=== PATIENT | female | born 1980 | race Caucasian/White ===

== ENCOUNTER 2017-11-19 15:31 | Emergency (ER) | payer OTHER ==
[2017-11-19 16:31] LABS: CLARITY,URINE CLEAR; COLOR,URINE YELLOW
[2017-11-19 16:32] LABS: BACTERIA,URINE 0 /HPF (0-FEW); BILIRUBIN,URINE NEG (NEG); GLUCOSE,URINE NEG (NEG); NITRITE,URINE NEG (NEG); SQUAMOUS EPITHELIAL CELL,UR MOD /LPF; UROBILINOGEN,URINE 0.2 mg/dL (0.2 mg/dL); WBC,URINE OCC /HPF (0-4)
--- NOTE | 2017-11-19 17:10 | RAD ---
OB <14 WKS W/TV History: Vaginal bleeding, Comparison: None. Findings: Multiple transabdominal sonographic images of the pelvis are submitted. Uterus measured 10.1 x 5.1 x 6.9 cm. There is a single intrauterine gestational sac with identifiable yolk sac and pole. Gestational sac morphology is within normal limits. heart rate is 143 bpm. There is a focus of heterogeneous hypoechogenicity near the gestational sac about 1.5 cm in size. Right ovary measured 2.2 x 2 x 2.4 cm. There is a hypoechoic lesion with increased through transmission of the right ovary about 1.1 x 1 x 1 cm in size. There is normal low resistance vascularity of the right ovary. Left ovary is not visualized. Transvaginal ultrasound: Multiple transvaginal sonographic images of the pelvis are submitted. There is a single intrauterine gestational sac with identifiable yolk sac and pole. Gestational sac morphology is within normal limits. Uterus measured 10.2 x 5.2 x 6.2 cm. Right ovary measured 2.1 x 2.7 x 2.6 cm. There is anechoic lesion of the right ovary on the order of 1 x 1.1 x 1.3 cm in size. There is normal low resistance vascularity of the right ovary. Left ovary is not seen. No significant free fluid is demonstrated. [place]-rump length measurement of 1.06 cm corresponds with 7 weeks 1 day. Gestational sac measurement of 2.91 cm corresponds with 8 weeks 0 days. LMP age is 7 weeks 4 days with estimated delivery date of 07/04/2018. LMP age is 6 weeks 6 days with estimated delivery of 07/09/2018. Impression: 1. There is a single viable intrauterine , adjusted ultrasound age of 7 weeks 4 days with estimated delivery date by ultrasound of 07/04/2018. There is a small focus of subchorionic hemorrhage near gestational sac. 2. Left ovary could not be visualized. There is a small cyst of the right ovary. There is no significant free fluid. Electronically signed by: Etienne White MD (11/19/2017 5:06 PM) [facility]
[2017-11-19 17:44] VITALS: BP 117/72
--- NOTE | 2017-11-19 17:48 | PHYS DOC ---
Past History Past Medical History: No Pertinent History Smoking: Non-smoker Adult General Chief Complaint Chief Complaint: VAGINAL BLEEDING HPI HPI Patient is a 37 year old female who presents with complaining of abdominal pain and vaginal bleeding during . Patient is with LMP of October 03, 2017@7 weeks of gestation with positive home and clinic test with complaining of vaginal spotting this morning with mild lower abdominal pain. Patient has appointment with her PHYSICAL SCIENCES PROFESSOR December 08 and did not have OB ultrasound since her . Patient had blood type B+. Last intercourse was 5 days ago. Review of Systems Review of Systems Constitutional: Denies fever or chills [] Eyes: Denies change in visual acuity, redness, or eye pain [] HENT: Denies nasal congestion or sore throat [] Respiratory: Denies cough or shortness of breath [] Cardiovascular: No additional information not addressed in HPI [] GI: Reports abdominal pain, denies nausea, vomiting, bloody stools or diarrhea [ ] : Denies dysuria or hematuria [] Musculoskeletal: Denies back pain or joint pain [] Integument: Denies rash or skin lesions [] Neurologic: Denies headache, focal weakness or sensory changes [] Endocrine: Denies polyuria or polydipsia [] All other systems were reviewed and found to be within normal limits, except as documented in this note. Physical Exam Physical Exam Constitutional: Well developed, well nourished, no acute distress, non-toxic appearance. [] HENT: Normocephalic, atraumatic, Eyes: PERRLA, EOMI, conjunctiva normal, no discharge. [] Neck: Normal range of motion, no tenderness, supple, no stridor. [] Cardiovascular:Heart rate regular rhythm, no murmur [] Lungs & Thorax: Bilateral breath sounds clear to auscultation [] Abdomen: Bowel sounds normal, soft, no tenderness, no masses, no pulsatile masses. She refuses vaginal exam. Skin: Warm, dry, no erythema, no rash. [] Back: No tenderness, no CVA tenderness. [] Extremities: No tenderness, no cyanosis, no clubbing, ROM intact, no edema. [] Neurologic: Alert and oriented X 3, normal motor function, normal sensory function, no focal deficits noted. [] Psychologic: Affect normal, judgement normal, mood normal. [] Current Patient Data Lab Results Laboratory Tests Test 11/19/17 16:07 Urine Collection Type Unknown Urine Color Yellow Urine Clarity Clear Urine pH 7.0 Urine Specific [place] 1.010 Urine Protein Neg (NEG-TRACE) Urine Glucose (UA) Neg mg/dL (NEG) Urine Ketones (Stick) Neg mg/dL (NEG) Urine Blood Small (NEG) Urine Nitrite Neg (NEG) Urine Bilirubin Neg (NEG) Urine Urobilinogen Dipstick 0.2 mg/dL (0.2 mg/dL) Urine Leukocyte Esterase Neg (NEG) Urine RBC 1-2 /HPF (0-2) Urine WBC Occ /HPF (0-4) Urine Squamous Epithelial Cells Mod /LPF Urine Bacteria 0 /HPF (0-FEW) EKG EKG [] Radiology/Procedures Radiology/Procedures [address] [address] IMAGING REPORT Signed PATIENT: ANA MARÍA RUEDA ACCOUNT: [id number] : 1980 LOCATION: ER AGE: 37 SEX: F EXAM STATUS: REG ER ORD. PHYSICIAN: RAHEEM MANN MD REASON: 7 weeks , vaginal bleeding PROCEDURE: OB <14 WKS W/TV OB <14 WKS W/TV History: Vaginal bleeding, Comparison: None. Findings: Multiple transabdominal sonographic images of the pelvis are submitted. Uterus measured 10.1 x 5.1 x 6.9 cm. There is a single intrauterine gestational sac with identifiable yolk sac and pole. Gestational sac morphology is within normal limits. heart rate is 143 bpm. There is a focus of heterogeneous hypoechogenicity near the gestational sac about 1.5 cm in size. Right ovary measured 2.2 x 2 x 2.4 cm. There is a hypoechoic lesion with increased through transmission of the right ovary about 1.1 x 1 x 1 cm in size. There is normal low resistance vascularity of the right ovary. Left ovary is not visualized. Transvaginal ultrasound: Multiple transvaginal sonographic images of the pelvis are submitted. There is a single intrauterine gestational sac with identifiable yolk sac and pole. Gestational sac morphology is within normal limits. Uterus measured 10.2 x 5.2 x 6.2 cm. Right ovary measured 2.1 x 2.7 x 2.6 cm. There is anechoic lesion of the right ovary on the order of 1 x 1.1 x 1.3 cm in size. There is normal low resistance vascularity of the right ovary. Left ovary is not seen. No significant free fluid is demonstrated. [place]-rump length measurement of 1.06 cm corresponds with 7 weeks 1 day. Gestational sac measurement of 2.91 cm corresponds with 8 weeks 0 days. LMP age is 7 weeks 4 days with estimated delivery date of 07/04/2018. LMP age is 6 weeks 6 days with estimated delivery of 07/09/2018. Impression: 1. There is a single viable intrauterine , adjusted ultrasound age of 7 weeks 4 days with estimated delivery date by ultrasound of 07/04/2018. There is a small focus of subchorionic hemorrhage near gestational sac. 2. Left ovary could not be visualized. There is a small cyst of the right ovary. There is no significant free fluid. Electronically signed by: José White MD (11/19/2017 5:06 PM) [facility] DICTATED AND SIGNED BY: JOSÉ WHITE MD DATE: 11/19/17 1707 CC: RAHEEM MANN MD; MISAEL GUARDADO DO ~ Course & Med Decision Making Course & Med Decision Making Pertinent Labs and Imaging studies reviewed. (See chart for details) Evaluation of patient in ER showed 37-year-old female patient at 70 soft gestation with complaining of vaginal spotting and mild abdominal pain since this morning. Patient had unremarkable physical exam and didn't want to have vaginal exam. OB ultrasound showed intrauterine at 7 weeks of gestation with good heart rate with small subchorionic hemorrhage. HCG is pending and patient doesn't want to wait to have the results of her blood test. Patient instructed for pelvic rest and follow with her PHYSICAL SCIENCES PROFESSOR in 2 or 3 days and return to ER if not getting better. She has blood type of B+. Dragon Disclaimer Dragon Disclaimer This electronic medical record was generated, in whole or in part, using a voice recognition dictation system. Departure Departure: Impression: Primary Impression: Vaginal bleeding in patient at less than 20 weeks gestation Additional Impression: Subchorionic hemorrhage in first trimester Disposition: HOME, SELF-CARE (at 1746) Condition: STABLE Referrals: MISAEL GUARDADO DO (PCP) Patient Instructions: Pelvic Rest, Threatened Miscarriage Additional Instructions: Follow-up with your PHYSICAL SCIENCES PROFESSOR in 2 days Drink plenty of liquids Return to ER if not getting better Problem Qualifiers RAHEEM MANN MD Nov 19, 2017 17:48
== END 2017-11-19 17:56 | disposition home or self-care (01) ==
LOC: ER 15:31
DX: O46.91 Antepartum hemorrhage, unspecified, first trimester (principal); O34.81 Maternal care for other abnormalities of pelvic organs, first trimester; N83.201 Unspecified ovarian cyst, right side; Z3A.01 Less than 8 weeks gestation of pregnancy
CPT/HCPCS: 36415; 76801; 76817; 81001; 84702; 99285-25

== ENCOUNTER 2017-12-01 15:22 | Emergency (ER) | payer OTHER ==
[2017-12-01 15:36] VITALS: BP 108/65
[2017-12-01] MEDS ORDERED: IV NORMAL SALINE 1,000ML 1,000 ML IV ONE (16:00)
[2017-12-01 16:22] LABS: BASO # 0.1 x10^3/uL (0.0-0.2); BASO % 1 % (0-3); EOS # 0.1 x10^3/uL (0.0-0.7); EOS % 1 % (0-3); HEMATOCRIT 37.5 % (36.0-47.0); HEMOGLOBIN 12.9 g/dL (12.0-15.5); LYMPH # 1.3 x10^3/uL (1.0-4.8); LYMPH % 16 % (24-48); MEAN CORPUSCULAR HEMOGLOBIN 30 pg (25-35); MEAN CORPUSCULAR HGB CONC 34 g/dL (31-37); MEAN CORPUSCULAR VOLUME 88 fL (79-100); MONO # 0.4 x10^3/uL (0.0-1.1); MONO % 5 % (0-9); NEUT # 6.3 x10^3uL (1.8-7.7); NEUT % 77 % (31-73); PLATELET COUNT 264 x10^3/uL (140-400); RED BLOOD COUNT 4.25 x10^6/uL (3.50-5.40); WHITE BLOOD COUNT 8.2 x10^3/uL (4.0-11.0)
[2017-12-01 16:36] LABS: ALBUMIN 3.5 g/dL (3.4-5.0); ALBUMIN/GLOBULIN RATIO 1.1 (1.0-1.7); CREATININE 0.7 mg/dL (0.6-1.0); GFR 93.2; POTASSIUM 3.5 mmol/L (3.5-5.1); TOTAL BILIRUBIN 0.2 mg/dL (0.2-1.0); TOTAL PROTEIN 6.7 g/dL (6.4-8.2)
--- NOTE | 2017-12-01 16:39 | PHYS DOC ---
Past History Past Medical History: No Pertinent History Past Surgical History: Smoking: Non-smoker Alcohol Use: None Drug Use: None Adult General Chief Complaint Chief Complaint: VAGINAL BLEEDING HPI HPI 37-year-old female returns emergency room with vaginal bleeding. She is about 9 weeks and today she had some new vaginal bleeding. The patient was seen 2 weeks ago for similar complaint and things were okay at that time. She has not had any further bleeding until today. She had some mild cramping but that is resolved. She's had no clots. Her first was uncomplicated. She has been feeling well otherwise. She denies fever or chills. Review of Systems Review of Systems Constitutional: Denies fever or chills [] Eyes: Denies change in visual acuity, redness, or eye pain [] HENT: Denies nasal congestion or sore throat [] Respiratory: Denies cough or shortness of breath [] Cardiovascular: No additional information not addressed in HPI [] GI: Denies abdominal pain, nausea, vomiting, bloody stools or diarrhea [] : Vaginal bleeding[] Musculoskeletal: Denies back pain or joint pain [] Integument: Denies rash or skin lesions [] Neurologic: Denies headache, focal weakness or sensory changes [] Endocrine: Denies polyuria or polydipsia [] All other systems were reviewed and found to be within normal limits, except as documented in this note. Current Medications Current Medications Current Medications Medications (Trade) Dose Ordered Sig/Charlene Start Time Stop Time Status Last Admin Dose Admin Sodium Chloride 1,000 ml @ 1,000 mls/hr 1X ONCE 12/01/17 16:00 12/01/17 16:59 Allergies Allergies Allergies Coded Allergies Type Severity Reaction Last Updated Verified No Known Drug Allergies 12/01/17 No Physical Exam Physical Exam Constitutional: Well developed, well nourished, no acute distress, non-toxic appearance. [] HENT: Normocephalic, atraumatic, bilateral external ears normal, oropharynx moist, no oral exudates, nose normal. [] Eyes: PERRLA, EOMI, conjunctiva normal, no discharge. [] Neck: Normal range of motion, no tenderness, supple, no stridor. [] Cardiovascular:Heart rate regular rhythm, no murmur [] Lungs & Thorax: Bilateral breath sounds clear to auscultation [] Abdomen: Bowel sounds normal, soft, no tenderness, no masses, no pulsatile masses. [] Skin: Warm, dry, no erythema, no rash. [] Back: No tenderness, no CVA tenderness. [] Extremities: No tenderness, no cyanosis, no clubbing, ROM intact, no edema. [] Neurologic: Alert and oriented X 3, normal motor function, normal sensory function, no focal deficits noted. [] Psychologic: Affect normal, judgement normal, mood normal. [] Current Patient Data Vital Signs Vital Signs Date Time Temp Pulse Resp B/P (MAP) Pulse Ox O2 Delivery O2 Flow Rate FiO2 12/01/17 15:36 98.2 69 18 100 Room Air Lab Results Laboratory Tests Test 12/01/17 16:06 White Blood Count 8.2 x10^3/uL (4.0-11.0) Red Blood Count 4.25 x10^6/uL (3.50-5.40) Hemoglobin 12.9 g/dL (12.0-15.5) Hematocrit 37.5 % (36.0-47.0) Mean Corpuscular Volume 88 fL (79-100) Mean Corpuscular Hemoglobin 30 pg (25-35) Mean Corpuscular Hemoglobin Concent 34 g/dL (31-37) Red Cell Distribution Width 13.0 % (11.5-14.5) Platelet Count 264 x10^3/uL (140-400) Neutrophils (%) (Auto) 77 % (31-73) H Lymphocytes (%) (Auto) 16 % (24-48) L Monocytes (%) (Auto) 5 % (0-9) Eosinophils (%) (Auto) 1 % (0-3) Basophils (%) (Auto) 1 % (0-3) Neutrophils # (Auto) 6.3 x10^3uL (1.8-7.7) Lymphocytes # (Auto) 1.3 x10^3/uL (1.0-4.8) Monocytes # (Auto) 0.4 x10^3/uL (0.0-1.1) Eosinophils # (Auto) 0.1 x10^3/uL (0.0-0.7) Basophils # (Auto) 0.1 x10^3/uL (0.0-0.2) EKG EKG [] Radiology/Procedures Radiology/Procedures [] Impressions: EXAM: Obstetric ultrasound. HISTORY: Vaginal bleeding in . COMPARISON: None. FINDINGS: Sonographic evaluation of the pelvis was performed transabdominally. The uterus is neutral to anteverted and measures 12.6 x 8.9 x 3.5 cm. The cervix is closed and measures 4.9 cm. A single intrauterine gestation measures 9 weeks 0 days based on [place]-rump length 2.4 cm. heart rate is 178 bpm. The gestational sac is regular. There is no subchorionic collection. The right ovary measures 3.8 x 2.4 x 2.2 cm. The left ovary cannot be visualized currently. There is normal Doppler flow on the right. IMPRESSION: 1. Single intrauterine gestation measuring 9 weeks 0 days. heart rate 178 bpm. Electronically signed by: Manuel Feldman MD (12/01/2017 5:14 PM) [facility] DICTATED AND SIGNED BY: MAAME FELDMAN MD DATE: 12/01/17 9253 CC: RIKKI STILES DO; MISAEL GUARDADO DO Course & Med Decision Making Course & Med Decision Making Pertinent Labs and Imaging studies reviewed. (See chart for details) The patient's ultrasound is reassuring. This shows an intrauterine with heart rate of 178. Labs are unremarkable. Her urine is pending. Urine is negative for infection. The patient is stable for discharge at this time. She will follow up with OB as previously scheduled. [] Dragon Disclaimer Dragon Disclaimer This electronic medical record was generated, in whole or in part, using a voice recognition dictation system. Departure Departure: Referrals: MISAEL GUARDADO DO (PCP) RIKKI STILES DO Dec 01, 2017 16:39
--- NOTE | 2017-12-01 17:17 | RAD ---
EXAM: Obstetric ultrasound. HISTORY: Vaginal bleeding in . COMPARISON: None. FINDINGS: Sonographic evaluation of the pelvis was performed transabdominally. The uterus is neutral to anteverted and measures 12.6 x 8.9 x 3.5 cm. The cervix is closed and measures 4.9 cm. A single intrauterine gestation measures 9 weeks 0 days based on crown-rump length 2.4 cm. heart rate is 178 bpm. The gestational sac is regular. There is no subchorionic collection. The right ovary measures 3.8 x 2.4 x 2.2 cm. The left ovary cannot be visualized currently. There is normal Doppler flow on the right. IMPRESSION: 1. Single intrauterine gestation measuring 9 weeks 0 days. heart rate 178 bpm. Electronically signed by: Manuel Feldman MD (12/01/2017 5:14 PM) [facility]
[2017-12-01 18:15] LABS: AMORPHOUS SEDIMENT,UR PRESENT /HPF; BACTERIA,URINE 0 /HPF (0-FEW); BILIRUBIN,URINE NEG (NEG); CLARITY,URINE CLEAR; COLOR,URINE YELLOW; GLUCOSE,URINE NEG (NEG); NITRITE,URINE NEG (NEG); RBC,URINE RARE /HPF (0-2); SQUAMOUS EPITHELIAL CELL,UR OCC /LPF; UROBILINOGEN,URINE 0.2 mg/dL (0.2 mg/dL); WBC,URINE 0 /HPF (0-4)
[2017-12-02] MEDS ORDERED: FLUCONAZOLE 40 MG/ML PO SCH (09:00)
== END 2017-12-01 18:48 | disposition home or self-care (01) ==
LOC: ER 15:22
DX: O46.91 Antepartum hemorrhage, unspecified, first trimester (principal); Z3A.09 9 weeks gestation of pregnancy; Z98.890 Other specified postprocedural states
CPT/HCPCS: 36415; 76801; 80053; 81001; 84702; 85025; 99285